=== PATIENT | male | born 1995 | race Caucasian/White ===

== ENCOUNTER → 2016-05-04 | Outpatient (CLI) | payer BC ==
--- NOTE | 2016-05-04 15:06 | DX ---
Chest, Two Views - May 04, 2016, at 1237 hours History: Right chest pain, snowboarding accident. Comparison: June 2007. Findings: Cardiac silhouette is within normal range. No pneumonia, congestive heart failure, pleura l effusion, or pneumothorax. Old fracture with fixation plate and screws in the left clavicle. No def inite acute fracture of the ribs. Impression: No acute pulmonary disease.
== END ==
LOC: CIMAGING 12:27 → EDSTATUS 12:31 → CIMAGING 12:32
PROVIDERS: ATTEND Family Medicine
DX: R07.81 Pleurodynia (principal)
CPT/HCPCS: 71020-PO